=== PATIENT | female | born 1980 | race Caucasian/White ===

== ENCOUNTER 2022-03-28 00:47 | Emergency (ER) | payer OTHER ==
[2022-03-28 01:02] VITALS: BP 113/66
[2022-03-28 01:15] LABS: BILIRUBIN,URINE NEGATIVE (NEGATIVE); GLUCOSE, URINE (UA) NEGATIVE (NEGATIVE); KETONES,URINE (UA) 15 mg/dL (NEGATIVE); LEUKOCYTE ESTERASE, URINE TRACE (NEGATIVE); NITRITE,URINE NEGATIVE (NEGATIVE); OCCULT BLOOD,URINE LARGE (NEGATIVE); PROTEIN,URINE 100 mg/dL (NEGATIVE); UROBILINOGEN,URINE 0.2 (NORMAL) E.U./dL (NORMAL)
[2022-03-28 01:23] LABS: BACTERIA,URINE Few /HPF (None Seen); CLARITY,URINE SL. CLOUDY (CLEAR); RBC,URINE TNTC /HPF (0-5); SQUAMOUS EPITHELIAL CELL,UR RARE Squamous (<= Few)
[2022-03-28 01:24] LABS: HCG UR QUAL NEGATIVE
[2022-03-28] MEDS ORDERED: SULFAM/TRIM 800/160 Prepack 2 PO ONE (01:51)
[2022-03-28] MEDS ORDERED: PHENAZOPYRIDINE 100 MG TABLETS (Prepack) PO STA (01:51)
--- NOTE | 2022-03-28 01:53 | ED Physician Documentation ---
PD HPI FEMALE - Stated complaint Stated Complaint: FEMALE - Chief complaint Chief Complaint: Abd Pain - History obtained from History obtained from: Patient, Family - History of Present Illness Timing - onset: How many hours ago (30) Timing - duration: Days (1) Timing - details: Gradual onset, Still present Associated symptoms: Pelvic pain, Dysuria, Urinary frequency Similar symptoms before: Has not had sx before Recently seen: Not recently seen - Additional information Additional information: 42-year-old Sumaya Keita has developed urinary urgency frequency and dysuria about 30 hours ago. She has some uncomfortable pressure in her pelvis. She has not had these symptoms for previously. She has not otherwise been ill. Review of Systems Constitutional: denies: Fever Ears: denies: Ear pain Nose: denies: Congestion Throat: denies: Sore throat Cardiac: denies: Pedal edema, Calf pain Respiratory: denies: Cough GI: denies: Abdominal Pain, Nausea, Vomiting : reports: Dysuria, Frequency Skin: denies: Rash Musculoskeletal: denies: Neck pain, Back pain, Extremity pain PD PAST MEDICAL HISTORY - Past Medical History Past Medical History: No Cardiovascular: None Respiratory: None Neuro: None Endocrine/Autoimmune: None GI: None PET CARE TECHNICIAN: None : None HEENT: None Psych: None Musculoskeletal: None Derm: None - Past Surgical History Past Surgical History: No - Present Medications Home Medications: Ambulatory Orders Medication Instructions Recorded Confirmed Phenazopyridine HCl [Pyridium] 200 mg PO TID PRN #6 tablet 03/28/22 Sulfamethox/Trimeth 800/160 1 each PO BID #10 tablet 03/28/22 [Bactrim Ds] - Allergies Allergies/Adverse Reactions: Allergies Allergy/AdvReac Type Severity Reaction Status Date / Time No Known Drug Allergies Allergy Verified 03/28/22 01:02 - Social History Does the pt smoke?: No Smoking Status: Never smoker Does the pt drink ETOH?: No Does the pt have substance abuse?: No - Immunizations Immunizations are current?: Yes - POLST Patient has POLST: No PD ED PE NORMAL - Vitals Vital signs reviewed: Yes (normal) - General General: Alert and oriented X 3, No acute distress, Well developed/nourished - HEENT HEENT: Atraumatic, PERRL, EOMI - Respiratory Respiratory: No respiratory distress - Abdomen Abdomen: Normal bowel sounds, Soft, Non tender, Non distended, No organomegaly - Back Back: No CVA TTP, No spinal TTP - Derm Derm: Normal color, Warm and dry, No rash - Extremities Extremities: No deformity, No edema - Neuro Neuro: Alert and oriented X 3, card runner 2-12 intact, No motor deficit, No sensory deficit, Normal speech Eye Opening: Spontaneous Motor: Obeys Commands Verbal: Oriented GCS Score: 15 - Psych Psych: Normal mood, Normal affect Results - Vitals Vitals: Vital Signs - 24 hr 03/28/22 03/28/22 00:59 02:05 Temperature 36.7 C Heart Rate 60 Respiratory 16 16 Rate Blood Pressure 113/66 O2 Saturation 100 Oxygen O2 Source Room air - Labs Labs: Laboratory Tests 03/28/22 03/28/22 00:55 00:55 Urine Color YELLOW Urine Clarity SL. CLOUDY Urine pH 5.0 Ur Specific [place] >=1.030 H Urine Protein 100 H Urine Glucose (UA) NEGATIVE Urine Ketones 15 H Urine Occult Blood LARGE H Urine Nitrite NEGATIVE Urine Bilirubin NEGATIVE Urine Urobilinogen 0.2 (NORMAL) Ur Leukocyte Esterase TRACE H Urine RBC TNTC H Urine WBC 11-25 H Ur Squamous Epith Cells RARE Squamous Urine Bacteria Few Ur Microscopic Review INDICATED Urine Culture Comments INDICATED Urine HCG, Qual NEGATIVE PD MEDICAL DECISION MAKING - ED course Complexity details: considered differential, d/w patient, d/w family ED course: 42-year-old Sumaya Bansal presents to the emergency department with urinary urgency frequency and dysuria and appears to have urinary tract infection on evaluation of her urine in the laboratory. She is administered Septra DS and Pyridium. She is leaving on a flight this morning and will require a written prescription. Departure - Departure Disposition: 01 Home, Self Care Clinical Impression: Urinary tract infection Qualifiers: Urinary tract infection type: acute cystitis Hematuria presence: with hematuria Qualified Code(s): N30.01 - Acute cystitis with hematuria Condition: Stable Instructions: ED UTI Cystitis Female Follow-Up: Your, doctor [Other] Prescriptions: Sulfamethox/Trimeth 800/160 [Bactrim Ds] 1 each PO BID #10 tablet Phenazopyridine HCl [Pyridium] 200 mg PO TID PRN #6 tablet PRN Reason: dysuria Discharge Date/Time: 03/28/22 02:05
== END 2022-03-28 02:05 | disposition home or self-care (01) ==
LOC: ED 00:47
DX: N30.01 Acute cystitis with hematuria (principal)
CPT/HCPCS: 81001; 81003; 81025; 87086; 87181; 99282; 99283